=== PATIENT | female | born 1965 | race Caucasian/White ===

== ENCOUNTER 2020-03-06 01:04 | Outpatient (CLI) | payer MEDICARE, MEDICAID, SELFPAY ==
--- NOTE | 2020-03-06 14:30 | DI.CT_ITS ---
EXAM: CT CHEST WO CLINICAL HISTORY: SCREENING FOR LUNG CA, SMOKER, F17.210 TECHNIQUE: Imaging Protocol: Axial computed tomography images were acquired using low-dose technique . coronal and sagittal reformatted images were created and reviewed COMPARISON: No exams were available for comparison FINDINGS: Tracheobronchial tree: Patent where visualized. Mediastinum and Yvonne: No dominant adenopathy or fluid collection. Pulmonary parenchyma: No consolidation or dominant measurable mass. Moderate centrilobular emphysema, greater in the upper lobes. Moderately a mild amount of linear scarring or atelectasis near the govind g bases.. Lung Nodules: None. Pleura: No effusion or pneumothorax. Heart: The heart is not dilated. Minimal coronary artery calcifications are seen. Aorta: Thoracic aorta non-dilated.Minimal calcification. Upper abdomen: Unremarkable. Bones: Dextro scoliosis. Soft Tissues: Unremarkable. IMPRESSION: Emphysematous changes. No pulmonary nodules or other suspicious findings. Lung RADS Cat 1 - Negative: No nodules and definitely benign nodules modifier S Lung-RADS 1.0 CATEGORIES: Category 0 - Prior chest CT exam(s) being located for comparison. Category 1 - Annual screening in 12 months. No nodules or definitely benign nodules. Category 2 - Annual screening in 12 months. Benign appearance. Nodules with low likelihood of becomin g active cancer. Category 3 - 6-month follow-up. Probably benign. Short-term follow-up suggested. Nodules with low lik elihood of becoming active cancer. Category 4A - 3-month follow-up and CT/PET if >8 mm in size. Suspicious finding. Findings which requi re additional testing. Category 4B - Findings which require additional testing and tissue sampling. Suspicious finding. C Added to Any of the Above - History of prior lung cancer screening. S Added to Any of the Above - Significant unexpected other finding. RADIATION DOSE DELIVERED: 79.06mGy.cm Total DLP 79.06mGy.cm Total DLP DATA REPOSITORY: All CT scans at this facility are submitted to the National Radiology Data Registry (NRDR) Dose Index Registry (DIR) with the [employer] ([employer]). RADIATION OPTIMIZATION: All CT scans at this facility use at least one of these dose optimization te chniques: automated exposure control; mA and/or kV adjustment per patient size (includes targeted exa ms where dose is matched to clinical indication); or iterative reconstruction.
== END 2020-03-06 01:24 ==
PROVIDERS: PCP Nurse Practitioner; Visit Provider Nurse Practitioner
DX: Z12.2 Encounter for screening for malignant neoplasm of respiratory organs (principal); F17.210 Nicotine dependence, cigarettes, uncomplicated
CPT/HCPCS: 71250